=== PATIENT | male | born 1950 | race Caucasian/White ===

== ENCOUNTER 2025-09-30 22:17 | Inpatient (IN) | payer MEDICARE, MEDICAID ==
[~2025-09-30] VITALS: Ht 167.6 cm; Wt 69.4 kg
[2025-09-30 22:18] VITALS: O2SAT 98
[2025-09-30 22:59] LABS: CLARITY URINE CLEAR (CLEAR); COLOR URINE YELLOW (YELLOW); GLUCOSE URINE 3+ (NEGATIVE); KETONES URINE NEGATIVE (NEGATIVE); LEUKOCYTE ESTERASE URINE NEGATIVE (NEGATIVE); NITRITE URINE NEGATIVE (NEGATIVE); OCCULT BLOOD URINE NEGATIVE (NEGATIVE); PH URINE 7.0 (4.5-8.0); PROTEIN URINE NEGATIVE (NEGATIVE); SPECIFIC GRAVITY URINE 1.019 (1.005-1.030); UROBILINOGEN URINE 1.0 E.U./dL (0.2-1.0)
[2025-09-30 23:08] LABS: BASOPHILS % 0.9 % (0.0-2.0); EOSINOPHILS % 5.4 % (0.0-5.0); HEMATOCRIT. 43.2 % (42.0-52.0); HEMOGLOBIN. 14.6 g/dL (14.0-18.0); LYMPHOCYTES % 20.7 % (20.0-50.0); MEAN PLATELET VOLUME 9.2 fl (7.4-10.4); MONOCYTES % 8.9 % (2.0-8.0); NEUTROPHILS % 64.1 % (40.0-76.0); PLATELET 177 x1000/uL (130-400); RED BLOOD CELL COUNT 4.88 mill/uL (4.7-6.1); RED CELL DISTRIBUTION WIDTH 13.8 % (11.6-14.6)
[2025-09-30 23:12] LABS: *AMPHETAMINES SCREEN URINE NEGATIVE (NEGATIVE); *BARBITURATES SCREEN URINE NEGATIVE (NEGATIVE); *BENZODIAZEPINES SCREEN URINE NEGATIVE (NEGATIVE); *COCAINE SCREEN URINE NEGATIVE (NEGATIVE); CANNABINOID URINE SCREEN NEGATIVE (NEGATIVE); METHADONE URINE SCREEN NEGATIVE (NEGATIVE); OPIATES URINE SCREEN PRESUMPTIVE POSITIVE (NEGATIVE); PHENCYCLIDINE URINE SCREEN NEGATIVE (NEGATIVE)
[2025-09-30 23:13] LABS: ECSTASY MDMA SCREEN URINE NEGATIVE (NEGATIVE)
[2025-09-30 23:21] LABS: CREATININE 1.1 mg/dL (0.6-1.3); ETHANOL BLOOD < 10 mg/dL (<10); UREA NITROGEN BLOOD 21 mg/dL (9-23)
[2025-09-30 23:22] LABS: PROTEIN TOTAL 7.3 g/dL (6.0-8.3)
[2025-09-30 23:23] LABS: ASPARTATE AMINOTRANSFERASE 18 IU/L (<34); BILIRUBIN DIRECT 0.3 mg/dL (<=3.0); BILIRUBIN TOTAL 1.1 mg/dL (0.1-1.0)
[2025-09-30 23:25] LABS: INR 0.9
[2025-09-30 23:27] LABS: TROPONIN I HIGH SENSITIVITY 1565 ng/L (3.0-53)
[2025-10-01] VITALS (21 sets, daily range): BP systolic 96–135; BP diastolic 63–101; PULSE 55–95; RESP 7–26; TEMP 36.5–36.7; O2SAT 95–100
[2025-10-01] MEDS: HEPARIN 60 UNITS/KG BOLUS IV SCH (00:36)
[2025-10-01] MEDS: HEPARIN 25,000 UNITS PREMIX 250 ML IV SCH (00:39)
[2025-10-01] MEDS ORDERED: IPRATROPIUM/ALBUTEROL 0.5-3(2.5)MG/3ML NEB HHN PRN (01:00)
[2025-10-01] MEDS ORDERED: DOCUSATE SODIUM 100MG CAPSULE PO PRN (01:00)
[2025-10-01] MEDS ORDERED: NITROGLYCERIN 0.4MG TABLET SL SL PRN (01:00)
[2025-10-01] MEDS ORDERED: ACETAMINOPHEN 325MG TABLET PO PRN ×2 (01:00)
[2025-10-01 01:02] LABS: BACTERIA URINE TRACE; RBC URINE NONE SEEN /hpf (0-2); SQUAMOUS EPITHELIAL CELL URINE RARE /lpf (RARE/1+); WBC URINE 0-2 /hpf (0-2)
[2025-10-01] MEDS ORDERED: DEXTROSE 50% WATER 50ML SYRINGE IV PRN (01:30)
[2025-10-01 03:59] LABS: INR 1.0
[2025-10-01 04:20] LABS: CREATININE 1.1 mg/dL (0.6-1.3); UREA NITROGEN BLOOD 19 mg/dL (9-23)
[2025-10-01 04:21] LABS: LACTATE DEHYDROGENASE 325 IU/L (120-246)
[2025-10-01 04:22] LABS: PHOSPHORUS 3.1 mg/dL (2.5-4.9)
[2025-10-01 04:25] LABS: TROPONIN I HIGH SENSITIVITY 14137 ng/L (3.0-53)
[2025-10-01] MEDS ORDERED: HEPARIN BOLUS PRN aPTT 30-44 IV (05:00)
[2025-10-01] MEDS ORDERED: HEPARIN BOLUS PRN aPTT <30 IV (05:00)
[2025-10-01] MEDS: BLOOD SUGAR DIAGNOSTIC STRIP TEST SCH (06:14)
[2025-10-01] MEDS: INSULIN LISPRO 100 UNITS/ML SUBCUT SCH (06:35)
[2025-10-01] MEDS: PANTOPRAZOLE SODIUM 40 MG/VIAL IV SCH (09:00)
[2025-10-01 10:43] LABS: TROPONIN I HIGH SENSITIVITY 15425 ng/L (3.0-53)
[2025-10-01] MEDS: MULTIVITAMINS,THER W-MINERALS TABLET PO SCH (11:00)
[2025-10-01] MEDS: LISINOPRIL 10MG TABLET PO SCH (11:00)
[2025-10-01] MEDS: METOPROLOL TARTRATE 25MG TABLET PO SCH (11:01)
[2025-10-01] MEDS: THIAMINE HCL 100MG TABLET PO SCH (11:01)
[2025-10-01] MEDS: ASPIRIN 81MG EC TABLET PO SCH (11:01)
[2025-10-01] MEDS ORDERED: LIDOCAINE HCL 1% 10 MG/ML 10ML VIAL ONE (12:56)
[2025-10-01] MEDS ORDERED: IODIXANOL 320 MG/ML 150ML BOTTLE IV ONE (14:05)
[2025-10-01] MEDS ORDERED: VERAPAMIL HCL 2.5 MG/1 ML 2ML VIAL IV ONE (14:05)
[2025-10-01] MEDS ORDERED: LIDOCAINE HCL 1% 20ML VIAL ONE (14:06)
[2025-10-01] MEDS ORDERED: HEPARIN 1000 UNITS/ML 10ML ONE ×2 (14:06→15:42)
[2025-10-01] MEDS ORDERED: LOPERAMIDE HCL 2MG CAPSULE PO PRN (14:15)
[2025-10-01] MEDS ORDERED: CLONIDINE 0.1MG TABLET PO PRN (14:15)
[2025-10-01] MEDS ORDERED: FENTANYL CITRATE/PF 50MCG/ML 2ML VIAL ONE ×2 (14:39→15:39)
[2025-10-01] MEDS ORDERED: MIDAZOLAM HCL 2 MG/2 ML VIAL ONE ×2 (14:39→15:39)
[2025-10-01] MEDS ORDERED: CLOPIDOGREL 75MG TABLET ONE (15:18)
[2025-10-01] MEDS ORDERED: ASPIRIN 81MG TABLET ONE (15:18)
[2025-10-01] MEDS ORDERED: NOREPINEPHRINE 8 MG in DEXT 5% WATER 242 ML IV STA (17:59)
[2025-10-01] MEDS ORDERED: DOPAMINE 400MG/250ML PREMIX 250 ML IV ONE (18:04)
[2025-10-01] MEDS: ATROPINE SULFATE 1MG/10ML SYR IV SCH (18:13)
[2025-10-01] MEDS: NOREPINEPHRINE 8MG/250ML PMX 250ML IV ONE (18:13)
[2025-10-01] MEDS ORDERED: NOREPINEPHRINE 8MG/250ML PMX 250ML IV PRN (18:15)
[2025-10-01] MEDS: ONDANSETRON HCL 4MG/2ML INJ IV PRN (18:57)
[2025-10-01] MEDS: DOPAMINE 400MG/250ML PREMIX 250 ML IV PRN (19:00)
[2025-10-01 20:11] LABS: TROPONIN I HIGH SENSITIVITY 10959 ng/L (3.0-53)
[2025-10-01] MEDS ORDERED: ATORVASTATIN CALCIUM 40MG TABLET PO SCH (21:00)
[2025-10-01] MEDS: ATORVASTATIN CALCIUM 40MG TABLET PO SCH (21:18)
[2025-10-01] MEDS: INSULIN GLARGINE 100 UNITS/ML SUBCUT SCH (21:20)
[2025-10-01] MEDS: SODIUM CHLORIDE 0.45% 1,000 ML IV SCH (21:21)
[2025-10-02] VITALS (46 sets, daily range): BP systolic 88–157; BP diastolic 53–103; PULSE 48–119; RESP 8–42; TEMP 36.3–36.6; O2SAT 95–100
[2025-10-02] MEDS: LORAZEPAM 2MG/ML UD SYRINGE IV PRN (00:32)
[2025-10-02] MEDS: MORPHINE SULFATE 2 MG/ML INJ (NOT FOR IM USE) IV PRN (01:32)
[2025-10-02] MEDS: DIPHENHYDRAMINE 50MG/ML VIAL IV NR (05:54)
[2025-10-02 07:11] LABS: CREATININE 0.9 mg/dL (0.6-1.3); TRIGLYCERIDE 78 mg/dL (0-150); UREA NITROGEN BLOOD 20 mg/dL (9-23)
[2025-10-02 07:12] LABS: LDL CHOLESTEROL 85 mg/dL (5-100)
[2025-10-02 07:14] LABS: PROTEIN TOTAL 5.4 g/dL (6.0-8.3)
[2025-10-02 07:16] LABS: ASPARTATE AMINOTRANSFERASE 46 IU/L (<34); BILIRUBIN DIRECT 0.5 mg/dL (<=3.0); BILIRUBIN TOTAL 1.7 mg/dL (0.1-1.0)
[2025-10-02 07:18] LABS: T4 FREE 1.25 ng/dL (0.89-1.76)
[2025-10-02 07:21] LABS: HEMATOCRIT. 34.2 % (42.0-52.0); HEMOGLOBIN. 11.4 g/dL (14.0-18.0); MEAN PLATELET VOLUME 9.8 fl (7.4-10.4); PLATELET 186 x1000/uL (130-400); RED BLOOD CELL COUNT 3.79 mill/uL (4.7-6.1); RED CELL DISTRIBUTION WIDTH 13.3 % (11.6-14.6)
[2025-10-02] MEDS: CLOPIDOGREL 75MG TABLET PO SCH (08:12)
[2025-10-02] MEDS ORDERED: NALOXONE HCL 0.4MG/ML VIAL IV PRN (09:00)
[2025-10-02] MEDS ORDERED: CLOP-31 MT (09:46)
[2025-10-02] MEDS ORDERED: EMPA10TA MT (09:46)
[2025-10-02] MEDS ORDERED: LISI20TA31 MT (09:46)
[2025-10-02] MEDS ORDERED: ATOR-2 MT (09:46)
[2025-10-02] MEDS ORDERED: ASPI-1497 MT (09:46)
[2025-10-02] MEDS ORDERED: METO25TA6 MT (09:47)
[2025-10-02] MEDS: LISINOPRIL 10MG TABLET PO NR (10:04)
[2025-10-02] MEDS ORDERED: INSU100I28 SQ (10:18)
[2025-10-02] MEDS ORDERED: METF-1150 MT (12:44)
[2025-10-02] MEDS: BUPRENORPHINE 8MG SL TABLET SL SCH (16:46)
[2025-10-02 16:53] LABS: LYMPHOCYTES % MANUAL 6.0 % (20.0-50.0); MONOCYTES % MANUAL 4.0 % (2.0-8.0); NEUTROPHILS % MANUAL 90.0 % (45.0-75.0); PLATELET ESTIMATE NORMAL
[2025-10-03] VITALS: BP 140/56; PULSE 71; RESP 16; TEMP 37.6; O2SAT 98
[2025-10-03 04:00] VITALS: BP 119/67; PULSE 85; RESP 17; TEMP 37.1; O2SAT 97
[2025-10-03 08:00] VITALS: BP 106/63; PULSE 87; RESP 18; TEMP 36.7; O2SAT 99
[2025-10-03 08:52] LABS: BASOPHILS % 0.2 % (0.0-2.0); EOSINOPHILS % 0.3 % (0.0-5.0); HEMATOCRIT. 36.2 % (42.0-52.0); HEMOGLOBIN. 12.0 g/dL (14.0-18.0); LYMPHOCYTES % 7.9 % (20.0-50.0); MEAN PLATELET VOLUME 9.2 fl (7.4-10.4); MONOCYTES % 7.3 % (2.0-8.0); NEUTROPHILS % 84.3 % (40.0-76.0); PLATELET 173 x1000/uL (130-400); RED BLOOD CELL COUNT 4.00 mill/uL (4.7-6.1); RED CELL DISTRIBUTION WIDTH 13.8 % (11.6-14.6)
[2025-10-03] MEDS: LISINOPRIL 20MG TABLET PO SCH (09:00)
[2025-10-03 09:03] LABS: INR 1.0
[2025-10-03 09:17] LABS: CREATININE 1.1 mg/dL (0.6-1.3)
[2025-10-03 09:18] LABS: UREA NITROGEN BLOOD 23 mg/dL (9-23)
[2025-10-03] MEDS: POTASSIUM CHLORIDE 20MEQ/PACKET PO NR (10:34)
[2025-10-03 12:00] VITALS: BP 139/86; PULSE 73; RESP 18; TEMP 36.7; O2SAT 97
[2025-10-03 14:26] VITALS: BP 127/81; PULSE 76; TEMP 97.6
== END 2025-10-03 14:52 | disposition home or self-care (01) | DRG 322 ==
LOC: ER 22:17 → 5WST 10-01 00:16 → EDBEDREQ 10-01 00:24 → EDBEDREQTM 10-01 00:24 → EDBEDREQDT 10-01 00:24 → 3WST 10-01 16:50 → CVICU 10-01 18:31 → 5WST 10-02 08:51
PROVIDERS: ADMIT Internal Medicine; ATTEND Internal Medicine
PROC: 027035Z Dilation of Coronary Artery, One Artery with Two Drug-eluting Intraluminal Devices, Percutaneous Approach (ICD-10-PCS; principal; 2025-10-01)
PROC: 4A023N7 Measurement of Cardiac Sampling and Pressure, Left Heart, Percutaneous Approach (ICD-10-PCS; 2025-10-01)
PROC: B211YZZ Fluoroscopy of Multiple Coronary Arteries using Other Contrast (ICD-10-PCS; 2025-10-01)
PROC: B215YZZ Fluoroscopy of Left Heart using Other Contrast (ICD-10-PCS; 2025-10-01)
PROC: 02HV33Z Insertion of Infusion Device into Superior Vena Cava, Percutaneous Approach (ICD-10-PCS; 2025-10-01)
PROC: B548ZZA Ultrasonography of Superior Vena Cava, Guidance (ICD-10-PCS; 2025-10-01)
DX: I21.4 Non-ST elevation (NSTEMI) myocardial infarction (principal); I16.1 Hypertensive emergency; Z79.02 Long term (current) use of antithrombotics/antiplatelets; E11.9 Type 2 diabetes mellitus without complications; F11.10 Opioid abuse, uncomplicated; R71.0 Precipitous drop in hematocrit; L76.32 Postprocedural hematoma of skin and subcutaneous tissue following other procedure; I25.10 Atherosclerotic heart disease of native coronary artery without angina pectoris; I10 Essential (primary) hypertension; F17.210 Nicotine dependence, cigarettes, uncomplicated; Z79.82 Long term (current) use of aspirin; Z91.148 Patient's other noncompliance with medication regimen for other reason; F41.9 Anxiety disorder, unspecified; Z78.1 Physical restraint status; Y83.8 Other surgical procedures as the cause of abnormal reaction of the patient, or of later complication, without mention of misadventure at the time of the procedure; Y92.238 Other place in hospital as the place of occurrence of the external cause; R00.1 Bradycardia, unspecified; Z79.4 Long term (current) use of insulin; Z79.899 Other long term (current) drug therapy
CPT/HCPCS: 36415; 36573; 71045; 80048; 80061; 80076; 80305; 80320; 81003; 82040; 82270; 82553; 82962; 83036; 83615; 83735; 83880; 84100; 84439; 84443; 84481; 84484; 85014; 85018; 85025; 85347; 85379; 87340; 92928; 93005; 93306; 93458; 93970; 99285; A4606; A4615; C1725; C1769; C1887; C1893; J0461; J1200; J1265; J1644; J1815; J2003; J2060; J2250; J2270; J2405; J2470; J3010; J3490; Q9967; C1874; G0480